=== PATIENT | male | born 1990 | race Caucasian/White ===

== ENCOUNTER 2021-04-25 18:07 | Emergency (ER) | payer OTHER ==
[~2021-04-25] VITALS: Ht 180.3 cm; Wt 83.0 kg
[2021-04-25] MEDS ORDERED: IBUPROFEN200 MG PO (19:29)
[2021-04-25] MEDS ORDERED: AMOXICILLIN500 MG PO (19:39)
== END 2021-04-25 20:07 | disposition home or self-care (01) ==
LOC: ED 18:07
DX: K04.7 Periapical abscess without sinus (principal)
CPT/HCPCS: 99282